=== PATIENT | female | born 1995 | race Caucasian/White ===

== ENCOUNTER 2018-05-28 22:08 | Outpatient (CLI) | payer OTHER | END 2018-05-28 23:30 | disposition home or self-care (01) | LOC: M LDO 22:08 | DX: O47.1 False labor at or after 37 completed weeks of gestation (principal); Z3A.40 40 weeks gestation of pregnancy | CPT/HCPCS: 59025 ==

== ENCOUNTER 2018-05-31 13:25 | Outpatient (CLI) | payer OTHER | END 2018-05-31 14:10 | disposition home or self-care (01) | LOC: M LDO 13:25 | DX: O47.1 False labor at or after 37 completed weeks of gestation (principal); Z3A.40 40 weeks gestation of pregnancy | CPT/HCPCS: 59025 ==

== ENCOUNTER 2018-05-31 21:45 | Inpatient (IN) | payer OTHER ==
[2018-05-31 23:24] LABS: HEMATOCRIT 37.9 % (36.0-47.0); HEMOGLOBIN 12.7 g/dl (12.0-15.5); MEAN CORPUSCULAR HGB CONC 33.5 g/dl (32.0-36.5); MEAN CORPUSCULAR VOLUME 89.4 fl (80.0-96.0); PLATELET COUNT, AUTOMATED 254 10^3/uL (150-450); RED BLOOD COUNT 4.24 10^6/uL (4.00-5.40); WHITE BLOOD COUNT 15.1 10^3/uL (4.0-10.0)
[2018-05-31] MEDS: LACTATED RINGER'S 1000 ML IV (23:25)
[2018-05-31] MEDS: AMPICILLIN SOD 2 GM in APPROPRIATE DILUENT 20 ML IV (23:41)
[2018-06-01] MEDS ORDERED: FENTANYL 2MCG/ML ROPIVACAINE 0.2% IN 0.9% NACL 200ML IVBAG As Ordered (00:09)
[2018-06-01] MEDS ORDERED: NALOXONE INJ 0.4 MG/1 ML VIAL (J2310) IV (01:35)
[2018-06-01] MEDS ORDERED: ONDANSETRON 4MG/2ML VIAL (J2405) IV (01:35)
[2018-06-01] MEDS ORDERED: LACTATED RINGER'S 1000 ML IV (01:35)
[2018-06-01] MEDS ORDERED: EPIDURAL COMMENT XX (01:35)
[2018-06-01] MEDS ORDERED: REFRIGERATOR IV KEYS XX (01:35)
[2018-06-01] MEDS ORDERED: diphenhydrAMINE INJ 50MG/ML VIAL (J1200) IV (01:35)
[2018-06-01] MEDS ORDERED: FENTANYL/ROPIVACAINE/NACL BAG 200 ML EPIDURAL (01:35)
[2018-06-01] MEDS ORDERED: ePHEDrine SULFATE 25 MG/5 ML(5MG/ML) SYRINGE IV (01:35)
[2018-06-01] MEDS ORDERED: EPIDURAL/PCA KEYS XX (01:35)
[2018-06-01] MEDS: LR 1,000 ML IV ×2 (02:29→13:14)
[2018-06-01] MEDS: AMPICILLIN SOD 1 GM in APPROPRIATE DILUENT 10 ML IV ×3 (03:54→11:42)
[2018-06-01] MEDS: OXYTOCIN DRIP 30 UNITS in APPROPRIATE DILUENT 1 EA IV ×3 (06:20→17:50)
[2018-06-01] MEDS: LACTATED RINGER'S 1000 ML IV (09:30)
[2018-06-01] MEDS: AMPICILLIN SOD/SULBACTAM SOD 3 GM in D5W MINI-BAG PLUS 100 ML IV (13:54)
[2018-06-01] MEDS ORDERED: ACETAMINOPHEN 325 MG TAB As Ordered (14:07)
[2018-06-01] MEDS: ACETAMINOPHEN TAB 650MG DOSE (2X325MG) PO ×2 (14:09→20:50)
[2018-06-01] MEDS ORDERED: METOCLOPRAMIDE INJ 10MG/2ML VIAL (J2765) IV (18:00)
[2018-06-01] MEDS: MEASLES,MUMPS,RUBELLA VACCINE INJ (MMR-II) (90707) SC (18:25)
[2018-06-01] MEDS: RHOGAM 300 MCG (1500 IU) INJ (J2790) IM (18:25)
[2018-06-01] MEDS: IBUPROFEN 800 MG TAB PO (18:50)
[2018-06-01] MEDS: DOCUSATE SODIUM 100 MG CAP PO (20:50)
[2018-06-02] MEDS: DOCUSATE SODIUM 100 MG CAP PO ×2 (08:07→19:37)
[2018-06-02] MEDS: PRENATAL VITAMINS CHEWABLE TABLET PO (08:07)
[2018-06-02] MEDS: IBUPROFEN 800 MG TAB PO ×2 (08:07→19:34)
[2018-06-02] MEDS ORDERED: INFLUENZA QUADRIVALENT PF VACCINE 0.5ML SYRINGE (90686) IM (12:15)
[2018-06-02] MEDS ORDERED: ADACEL/BOOSTRIX VACCINE (DIPHTH/PERTUSS/ACELL/TETANUS)0.5ML SYR (90715) IM (12:15)
[2018-06-03] MEDS: PRENATAL VITAMINS CHEWABLE TABLET PO (08:24)
[2018-06-03] MEDS: DOCUSATE SODIUM 100 MG CAP PO (08:24)
[2018-06-03] MEDS: IBUPROFEN 800 MG TAB PO (08:24)
[2018-06-03] MEDS: ADACEL/BOOSTRIX VACCINE (DIPHTH/PERTUSS/ACELL/TETANUS)0.5ML SYR (90715) IM (08:50)
[2018-06-03] MEDS: INFLUENZA QUADRIVALENT PF VACCINE 0.5ML SYRINGE (90686) IM (08:51)
[2018-06-03] MEDS: DIBUCAINE 1% OINTMENT 30GM TOP (10:42)
== END 2018-06-03 10:45 | disposition home or self-care (01) | DRG 775 ==
LOC: M LDO 21:45 → M LDI 23:13 → M OBS 06-01 18:46
PROVIDERS: Obstetrics & Gynecology
PROC: 10E0XZZ Delivery of Products of Conception, External Approach (ICD-10-PCS; principal; 2018-06-01)
PROC: 0HQ9XZZ Repair Perineum Skin, External Approach (ICD-10-PCS; 2018-06-01)
DX: O48.0 Post-term pregnancy (principal); Z37.0 Single live birth; Z3A.40 40 weeks gestation of pregnancy; O26.00 Excessive weight gain in pregnancy, unspecified trimester; O99.820 Streptococcus B carrier state complicating pregnancy; O70.0 First degree perineal laceration during delivery

== ENCOUNTER 2018-11-28 02:33 | Emergency (ER) | payer OTHER ==
[~2018-11-28] VITALS: Ht 162.6 cm; Wt 81.8 kg
[2018-11-28 02:33] VITALS: BP 122/77
[~2018-11-28 02:33] MED LIST: ACET650T3 PO; DIBU1OIN TOP; EVEN500C2 PO; IBUP-1114 PO; PERC5TAB12 PO; PRENTAB55 PO; ZYRT10CA PO
[2018-11-28] MEDS ORDERED: NAPR-885 PO (02:40)
[2018-11-28] MEDS ORDERED: NASA30TA PO (02:40)
[2018-11-28] MEDS ORDERED: LIDOCAINE VISCOUS 2% SOLN 15ML UDC SS ONE (03:30)
== END 2018-11-28 03:51 | disposition home or self-care (01) ==
LOC: M ED 02:33
DX: J02.9 Acute pharyngitis, unspecified (principal)